=== PATIENT | female | born 1960 | race Caucasian/White ===

== ENCOUNTER 2017-03-20 06:00 | Day surgery (SDC) | payer OTHER ==
[2017-03-20] VITALS (11 sets, daily range): BP systolic 119–138; BP diastolic 72–81; PULSE 62–80; RESP 12–24; Ht 175.3 cm; Wt 71.0 kg
[~2017-03-20] VITALS: Ht 175.3 cm; Wt 71.0 kg
[2017-03-20] MEDS ORDERED: ROPIVACAINE 0.5 % 30 ML VIAL ONE (06:38)
[2017-03-20] MEDS ORDERED: SOD CHLORIDE 0.9% 1,000 ML IV SCH (07:11)
--- NOTE | 2017-03-20 07:11 | HPN ---
Date/Time of Note Date/Time of Note DATE: 03/20/17 TIME: 07:11 Interval H&P Admission Note Pt. seen H&P reviewed: No system changes LUCAS REAL MD March 20, 2017 07:11
[2017-03-20] MEDS ORDERED: MIDAZOLAM 1 MG/ML 2 ML INJ ONE (07:14)
[2017-03-20] MEDS ORDERED: NATURE THYROID (07:15)
[2017-03-20] MEDS ORDERED: ESCI10TA PO (07:15)
[2017-03-20] MEDS ORDERED: morphine 2 MG INJ IV PRN (07:30)
[2017-03-20] MEDS ORDERED: ONDANSETRON 4 MG INJ IV PRN ×2 (07:30→08:00)
[2017-03-20] MEDS ORDERED: OXYCODONE/ACETAMINOPHEN (5/325) TAB PO PRN ×2 (07:30)
[2017-03-20] MEDS ORDERED: MEPERIDINE 25 MG INJ IV PRN (08:00)
[2017-03-20] MEDS ORDERED: HYDROmorphONE (0.2 MG/ML) 10ML SYG IV PRN ×2 (08:00)
[2017-03-20] MEDS ORDERED: FENTAnyl 50 MCG/ML VIAL IV PRN (08:00)
[2017-03-20] MEDS ORDERED: DIPHENHYDRAMINE 50 MG INJ IV PRN (08:00)
[2017-03-20] MEDS ORDERED: PROPOFOL 20 ML ONE (08:53)
[2017-03-20] MEDS ORDERED: LIDOCAINE 2% (SDV) 5 ML INJ ONE (08:53)
[2017-03-20] MEDS ORDERED: ROCURONIUM 50 MG INJ ONE (08:53)
[2017-03-20] MEDS ORDERED: ONDANSETRON 4 MG INJ ONE (08:54)
[2017-03-20] MEDS ORDERED: METOCLOPRAMIDE 10 MG INJ ONE (08:54)
[2017-03-20] MEDS ORDERED: NEOSTIGMINE 3 MG/3 ML SYRINGE ONE (08:56)
[2017-03-20] MEDS ORDERED: GLYCOPYRROLATE 1 MG INJ ONE (08:56)
--- NOTE | 2017-03-20 09:57 | OPR ---
DATE OF OPERATION: 03/20/2017 PREOPERATIVE DIAGNOSIS: Rule out tear of medial and lateral meniscus, right knee. POSTOPERATIVE DIAGNOSES: 1. Complex tear of medial meniscus, right knee. 2. Degenerative tear of lateral meniscus. 3. 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 4. 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 OPERATIONS PERFORMED: 1. Arthroscopy, right knee. 2. Partial medial meniscectomy. 3. Partial lateral meniscectomy. 4. Chondroplasty of the patellofemoral joint. SURGEON: Lucas Jasso MD WET WASH ASSEMBLER: Marcos Jurado MD ANESTHESIA: General. TOURNIQUET TIME: Zero. DESCRIPTION OF PROCEDURE: The patient taken to the operating room and placed in supine position. S atisfactory general anesthesia was administered, 2 grams Ancef given intravenously. The right knee was prepped and draped in the usual manner. Exam under anesthesia revealed full range of motion, AP drawer and Logan, 1+, pivot shift was negative. No varus or valgus instability. Standard arthroscopic portals were used. Undersurface of patella had grade II, slight grade III cho ndromalacia centrally. Trochlea had grade III to IV chondromalacia fairly diffusely, particularly i n the medial femoral condyle. The medial gutter was intact. There were loose articular debris in t he lateral gutter. Popliteus was intact. Lateral compartment was entered. There was a tear of the lateral meniscus extending to the anterior horn. It was more of a horizontal cleavage degenerative tear. There was grade II to III chondromalacia of the lateral femoral condyle and lateral tibial p lateau. Anterior and posterior cruciates were intact at origins and insertions. Medial compartment was entered. There was a tear of the medial meniscus from the mid zone to the posterior horn and g rade II to III chondromalacia of the medial compartment. A probe was inserted. The tear was palpat ed. Using curved and straight baskets, the tear was saucerized from the mid zone to the posterior h orn. The shaver was used to smooth and contour the edges, remove all loose debris to a stable rim. Chondroplasty performed along the medial femoral condyle and medial tibial plateau. The ligamentum mucosum was excised. The anterior and posterior cruciates were palpated and were intact. The late ral meniscus tear was palpated and then saucerized from the mid zone to the posterior horn. A shave r was used to smooth and contour the edges, remove all loose debris. Chondroplasty performed along the lateral compartment. Chondroplasty performed along the patellofemoral compartment. The knee wa s irrigated clear. Wounds were closed with Steri-Strips, infiltrated with 0.5% ropivacaine. Compre ssion dressing was applied, and the patient brought to the recovery room in stable condition. At th e end of procedure, sponge and needle count was correct. The patient tolerated the procedure well. INDUSTRIAL SWEEPER CLEANER ORTHOPEDIC SURGEON: During the procedure, an first assistant orthopedic surgeon was used at my request. The first assistant helped with manipulating the knee, with manipulating the arthroscope, and as sisting with meniscal resection Without a skilled orthopedic surgeon assisting me, this could not nj ve been done properly; therefore, should be compensated appropriately. Dictated By: LUCAS MORA/JOMAR Conf#: [id number] DID#: [id number]
== END 2017-03-20 11:50 | disposition home or self-care (01) ==
LOC: SDS 06:00
PROVIDERS: ATTEND Orthopaedic Surgery
DX: M23.241 Derangement of anterior horn of lateral meniscus due to old tear or injury, right knee (principal); M23.221 Derangement of posterior horn of medial meniscus due to old tear or injury, right knee; M17.11 Unilateral primary osteoarthritis, right knee; M94.261 Chondromalacia, right knee
CPT/HCPCS: 29880; J2175; J2250; J2405; J2710; J2765; J2795; J3010